=== PATIENT | female | born 1990 | race Caucasian/White ===

== ENCOUNTER → 2020-11-27 07:58 | Outpatient (BNVA) | payer MEDICAID, SELFPAY | PROVIDERS: PCP Registered Nurse; Visit Provider Specialist | DX: R20.0 Anesthesia of skin (principal); R20.2 Paresthesia of skin | CPT/HCPCS: 95910 ==

== ENCOUNTER → 2020-12-17 12:44 | Outpatient (BNVA) | payer MEDICAID, SELFPAY | PROVIDERS: PCP Registered Nurse; Referring Provider Registered Nurse; Visit Provider Anesthesiology Pain Medicine | DX: M54.5 Low back pain (principal); M79.641 Pain in right hand; M47.812 Spondylosis without myelopathy or radiculopathy, cervical region; Z79.891 Long term (current) use of opiate analgesic | CPT/HCPCS: 99214; 99215 ==

== ENCOUNTER → 2021-01-14 10:17 | Outpatient (BNVA) | payer MEDICAID, SELFPAY | PROVIDERS: PCP Registered Nurse; Visit Provider Anesthesiology Pain Medicine | DX: G89.29 Other chronic pain (principal); M54.5 Low back pain; R20.0 Anesthesia of skin; R20.2 Paresthesia of skin; M79.641 Pain in right hand; M79.642 Pain in left hand | CPT/HCPCS: 99213 ==

== ENCOUNTER → 2021-07-07 13:21 | Outpatient (BNVA) | payer MEDICAID, SELFPAY | PROVIDERS: PCP Registered Nurse; Visit Provider Internal Medicine Cardiovascular Disease | DX: I48.91 Unspecified atrial fibrillation (principal); F32.A Depression, unspecified; E66.9 Obesity, unspecified; F41.9 Anxiety disorder, unspecified; Z68.41 Body mass index [BMI] 40.0-44.9, adult | CPT/HCPCS: 99204 ==

== ENCOUNTER → 2021-07-14 13:44 | Outpatient (BNVA) | payer MEDICAID, SELFPAY | PROVIDERS: PCP Registered Nurse; Visit Provider Internal Medicine Cardiovascular Disease | DX: I48.91 Unspecified atrial fibrillation (principal) | CPT/HCPCS: 93005 ==

== ENCOUNTER → 2021-07-24 10:54 | Outpatient (BNVA) | payer MEDICAID, SELFPAY | PROVIDERS: PCP Registered Nurse; Referring Provider Family Medicine; Visit Provider Obstetrics & Gynecology | DX: Z12.4 Encounter for screening for malignant neoplasm of cervix (principal) | CPT/HCPCS: 87624 ==

== ENCOUNTER → 2021-07-30 08:30 | Outpatient (BNVA) | payer MEDICAID, SELFPAY | PROVIDERS: PCP Registered Nurse; Visit Provider Obstetrics & Gynecology | DX: N92.0 Excessive and frequent menstruation with regular cycle (principal); N93.9 Abnormal uterine and vaginal bleeding, unspecified | CPT/HCPCS: 87635 ==

== ENCOUNTER 2021-08-03 14:21 | Outpatient (CLI) | payer MEDICAID, SELFPAY ==
--- NOTE | 2021-08-03 14:32 | US_ITS ---
WS: [id number] TRANSABDOMINAL PELVIC AND TRANSVAGINAL PELVIC ULTRASOUND HISTORY: N92.0 - Excessive and frequent menstruation with irregular menses. COMPARISON: None available. Uterus: 9.1 cm x 7.0 cm x 5.0 cm. Enlarged anteverted uterus. Mild heterogeneity within the myometriu m. No discrete fibroid or mass identified. Small nabothian cysts. Endometrium: 1.0 cm. Mildly heterogeneous appearance of the endometrium. There are a few small cystic areas adjacent to the endometrium. Right ovary: 2.7 cm x 2.1 cm x 2.4 cm. Normal size and vascularity. Left ovary: 6.6 cm x 3.9 cm x 2.5 cm. There is a complex cystic structure in the cul-de-sac and exten ding into the LEFT adnexa. This may be the LEFT ovary. This also may be dilated fallopian tube due to with elongated appearance. There are a few small septations present. Limited vascularity may be due to position deep within the pelvis. No significant amount of free fluid in the cul-de-sac. US/US pelvic with transvaginal IMPRESSION: 1. Elongated cystic structure with septations deep within the pelvis and exten ding to the LEFT adnexa. This may be the LEFT ovary with cysts or LEFT fallopia n tube which is dilated. The entire structure measures 6.6 x 3.9 x 2.5 cm. A no rmal-appearing LEFT ovary is not identified. 2. Negative RIGHT ovary. 3. Mildly heterogeneous appearance of the endometrium with a few small, subcen timeter adjacent cystic structures. Possibility of adenomyosis must be consider ed.
== END 2021-08-03 14:22 | disposition home or self-care (01) ==
LOC: RAD 14:24
PROVIDERS: PCP Family Medicine; Visit Provider Obstetrics & Gynecology
DX: N92.0 Excessive and frequent menstruation with regular cycle (principal)
CPT/HCPCS: 76830; 76856

== ENCOUNTER 2021-08-04 07:26 | Day surgery (SDC) | payer MEDICAID, SELFPAY ==
[2021-08-03 10:27] VITALS: BMI 41.6
[2021-08-04] VITALS (10 sets, daily range): BP systolic 126–138; BP diastolic 70–96; PULSE 63–79; RESP 14–25; TEMP 36.5–36.6; O2SAT 98–100
--- NOTE | 2021-08-04 08:06 | P.ANESASSM_ITS ---
Pre-Anesthetic Assessment Height/Weight: Height 1.68 m Weight 117.027 kg Preop Diagnosis: AUB Operation Date: 08/04/21 09:30 Proposed Procedures p Hysteroscopy w/ Myosure/dialation and curettage [id number]/abla 32790/I48.91/N92.0(Not Applicable) - Damari Castillo MD s Dilation And Curettage (D&C)(Not Applicable) - Damari Castillo MD s Hysteroscopy w/ Ablation w/ Novasure(Not Applicable) - Damari Castillo MD Was Beta Alden taken within 24 hours: N/A Was Clonidine taken within 24 hours: N/A Social No alcohol and No tobacco Exam alert, oriented x 3, clear to auscultation bilaterally and regular rate & rhythm Airway Submandibular: within normal limits Cervical ROM: within normal limits Mallampati: Class III Dentition: chipped History/ROS No significant history except as noted Pulmonary Short of breath with one flight of stairs no CP CV/HEM Atrial Fibrillation and Anemia (Paroxysmal ) METS = 4 None reported Hepatic None reported GI None reported Metabolic Morbid Obesity Neuropsych Anxiety and Depression Anesthetic Plan ASA status: 3 (30 year old female with afib on anticoagulation, morbid obesity, anemia. ) Anesthesia: Anesthesia Evaluation and General Other: We discussed risk and benefits of general anesthesia including PONV, sore throat (sometimes severe), corneal abrasion, positioning and peripheral nerve injuries, life threatening allergic reaction, post operative ICU admission requiring prolonged intubation, stroke, heart attack, , and rare incidences of reca ll. Patient consents to proceed with general anesthesia. Risk of > 500 ml blood loss (7ml/kg in children): No Medications/Allergies Home Medications Medication Instructions Recorded Confirmed Last Taken Type buspirone 10 mg tablet 10 mg PO TID 11/27/20 08/04/21 07/05/21 History tizanidine 2 mg capsule 2 mg PO Q8H PRN 11/27/20 08/04/21 08/03/21 History venlafaxine 150 mg 150 mg PO DAILY 11/27/20 08/04/21 08/03/21 History capsule,extended release 24 hr gabapentin 300 mg capsule 300 mg PO TID #90 cap 01/14/21 08/04/21 08/03/21 Rx apixaban 5 mg tablet (Eliquis) 5 mg PO BID 07/07/21 08/03/21 08/02/21 History diltiazem HCl 360 mg 360 mg PO DAILY #30 cap 07/07/21 08/04/21 08/03/21 Rx capsule,extended release 24 hr (Cardizem CD) flecainide 100 mg tablet 100 mg PO Q12H #60 tab 07/07/21 08/04/21 08/03/21 Rx meloxicam 7.5 mg tablet 7.5 mg PO DAILY tab 07/07/21 08/04/21 07/21/21 History metoprolol succinate 100 mg 100 mg PO DAILY #30 tab 07/07/21 08/04/21 08/03/21 Rx tablet,extended release 24 hr norgestimate 0.25 mg-ethinyl 1 tab PO DAILY 07/24/21 08/04/21 08/03/21 History estradiol 35 mcg tablet Allergies Allergy/AdvReac Type Severity Reaction Status Date / Time No Known Allergies Allergy Verified 07/30/21 08:02 COUNT INCLUDES THE [facility] Anesthesia Medical History Anemia Anxiety Atrial fibrillation delivery delivered Depression Obesity Family History Mother Hypertension Family/Other Diabetes Paternal uncle Denies family history of CAD (coronary artery disease) Clotting disorder Hyperlipidemia Chronic kidney disease (CKD) Bleeding disorder Cancer Thyroid disease Stroke Social History Smoking and tobacco status: never smoked Alcohol intake: never Caregiver/support person: Yes Lives independently: Yes History of recent travel: No Female Reproductive History Date of last menstrual period: 06/30/21 Data Anesthesia : 08/04/21 Unknown Cardiac Studies: No Data to Display
[2021-08-04] MEDS: sodium chloride 0.9% 1,000 ML 30 ML IV (08:10)
[2021-08-04] MEDS: acetaminophen 1,000 MG/100 ML PIGGYBACK 400 MG IV (08:10)
[2021-08-04] MEDS: ketorolac 30 mg/mL INJ IVP (08:19)
[2021-08-04 08:28] LABS: OR HCG Qualitative Urine Negative (Negative)
[2021-08-04 08:29] LABS: Basophils % 0.5 %; Eosinophils # 0.1 10^3/uL (0.0-0.8); Eosinophils % 1.6 %; Hematocrit 32.1 % (37.0-47.0); Hemoglobin 9.3 g/dL (11.5-15.3); Lymphocytes % 18.3 %; Mean Corpuscular Hemoglobin 20.9 pg (28.0-34.0); Mean Corpuscular Volume 72.3 fl (81-99); Mean Platelet Volume 11.1 fL (7.4-10.4); Monocytes # 0.4 10^3/uL (0.2-0.9); Monocytes % 6.5 %; Neutrophils # 4.02 10^3/uL (1.8-7.7); Neutrophils % 72.9 %; Nucleated Red Blood Cells % 0 %; Platelet Count 193 10^3/cmm (130-400); Red Blood Count 4.44 10^6/uL (4.1-5.3); Red Cell Distribution Width 16.3 % (12.1-15.1); White Blood Count 5.5 10^3/uL (4.0-10.0)
--- NOTE | 2021-08-04 09:15 | W.PM.OPSUD ---
Surgery/Procedure H&P Update DATE OF PROCEDURE: August 04, 2021 DATE H&P PERFORMED: 07/30/21 H&P UPDATE INFORMATION: I have reviewed H&P completed within last 30 days, I have examined patient prior to procedure and No changes to prior documentation PREOP DIAGNOSIS: AUB PLANNED PROCEDURE: Operation Date: 08/04/21 09:30 Proposed Procedures p Hysteroscopy w/ Myosure/dialation and curettage [id number]/abla 06715/I48.91/N92.0(Not Applicable) - Damari Castillo MD s Dilation And Curettage (D&C)(Not Applicable) - Damari Castillo MD s Hysteroscopy w/ Ablation w/ Novasure(Not Applicable) - Damari Castillo MD Related Problem List Diagnoses (1) Abnormal uterine bleeding (AUB): (2) Obesity:
--- NOTE | 2021-08-04 11:09 | P.OP_ITS ---
Operative Report Date of procedure: August 04, 2021 Pre-op diagnosis: Preop Diagnosis AUB Post-op diagnosis: same Post-op findings: 10 week sized uterus with excessive tissue and a suspicious nodule near the left tubal ostia Procedure done: hysteroscopy, dilation and curettage with myosure and failed novasure ablation. Specimens removed/disposition: endometrial curettings to pathology Surgeon: Damari Castillo Anesthesia: General Estimated blood loss (mL): 50 IV fluids (mL): 700 Urine output (mL): 150 Complications: none Findings: 10 week sized uterus with excessive tissue and endometrial vascular nodule hysteroscopy deficit 400 Procedure: The patient was taken to the operating room where monitored anesthesia was administered and to be adequate. She was prepped and draped in the normal sterile fashion in the dorsal lithotomy position in Domenico stirrups. A weighted speculum was placed into the vagina and the anterior lip of the cervix grasped with a single-tooth tenaculum. The uterus was sounded to 10 cm. The cervix was dilated to 16 Mongolian. The hysteroscope was advanced into the endometrial cavity. There was excessive tissue and a vascular nodule near the left tubal ostia visualized. The MyoSure device was activated and the tissue was removed. Pictures were taken pre and post procedure. Attention was then turned to the NovaSure portion of the procedure. The NovaSure device was advanced into the endometrial cavity. The endometrial length was 6 and the endometrial width was 4.9. The first novasure device would not pass the cavity test. It was replaced and the device passed the test and was ready to use. The NovaSure device was activated and burn time was 4 seconds before it alarmed with damaged device. The device was removed and it was covered in tissue. The decision was made not to continue as there was so much tissue that it would likely continue to have the same problem. The mysosure was used again and there was some kira on the tissue. Everything else appeared normal. All instruments were removed. The patient tolerated the procedure well. Sponge lap and needle counts were correct x3. She was taken to the recovery room in stable condition.
--- NOTE | 2021-08-04 11:19 | PM.DCS ---
Discharge Providers Date of Discharge: August 04, 2021 Attending Provider at Discharge: Damari Castillo MD Primary Care Provider: Jovana Bailey DO Diagnoses at Discharge Discharge Diagnosis (1) Abnormal uterine bleeding (AUB): Status: Acute (2) Obesity: Status: Acute Reason for Visit Reason for Visit: menorrhagia N92.0/Attial Fibrillation I48.91 Hospital Course Hospital Course The patient was admitted for surgery. She did well postoperatively and was ready for discharge. Physical Exam Urinary Catheter Management: Benjamin: Cath Placed During This Visit: yes, but has since been removed by the nurse Urinary Catheter Date of Insertion: 08/04/21 Urinary Catheter Time of Insertion: 10:11 Date Urinary Catheter Removed: 08/04/21 Time Urinary Catheter Discontinued: 10:55 Discharge Data Studies Completed and Pending Pending at discharge Category Date Time Status ES surgery / GI images Routine Exams 08/04/21 08:01 Taken Pathology: Surgical [PTH] Routine Pth 08/04/21 11:01 Ordered Laboratory Results WBC 5.5 10^3/uL (4.0-10.0) 08/04/21 Unknown RBC 4.44 10^6/uL (4.1-5.3) 08/04/21 Unknown Hgb 9.3 g/dL (11.5-15.3) L 08/04/21 Unknown Hct 32.1 % (37.0-47.0) L 08/04/21 Unknown MCV 72.3 fl (81-99) L 08/04/21 Unknown MCH 20.9 pg (28.0-34.0) L 08/04/21 Unknown MCHC 29.0 g/dL (30.0-36.0) L 08/04/21 Unknown RDW 16.3 % (12.1-15.1) H 08/04/21 Unknown Plt Count 193 10^3/cmm (130-400) 08/04/21 Unknown MPV 11.1 fL (7.4-10.4) H 08/04/21 Unknown Neut % (Auto) 72.9 % 08/04/21 Unknown Lymph % (Auto) 18.3 % 08/04/21 Unknown Stokes % (Auto) 6.5 % 08/04/21 Unknown Eos % (Auto) 1.6 % 08/04/21 Unknown Baso % (Auto) 0.5 % 08/04/21 Unknown Neut # (Auto) 4.02 10^3/uL (1.8-7.7) 08/04/21 Unknown Lymph # (Auto) 1.0 10^3/uL (0.8-4.8) 08/04/21 Unknown Stokes # (Auto) 0.4 10^3/uL (0.2-0.9) 08/04/21 Unknown Eos # (Auto) 0.1 10^3/uL (0.0-0.8) 08/04/21 Unknown Baso # (Auto) 0.0 10^3/uL (0.0-0.1) 08/04/21 Unknown Nucleated RBC % (auto) 0 % 08/04/21 Unknown Nucleated RBCs # 0.0 /100WBC 08/04/21 Unknown Urine HCG, Qual Negative (Negative) 08/04/21 08:27 Vitals Last Vital Signs Temp 98 F 08/04/21 08:12 Pulse 65 08/04/21 08:12 Resp 16 08/04/21 08:12 BP 138/83 08/04/21 08:12 Pulse Ox 98 08/04/21 08:12 Discharge Plan Discharge Patient Disposition: Home Condition: Stable Prescriptions: Continued venlafaxine 150 mg capsule,extended release 24hr 150 mg PO DAILY 0RF buspirone 10 mg tablet 10 mg PO TID 0RF tizanidine 2 mg capsule 2 mg PO Q8H PRN (Reason: Spasms) 0RF gabapentin 300 mg capsule 300 mg PO TID Qty: 90 3RF norgestimate-ethinyl estradiol 0.25-35 mg-mcg tablet 1 tab PO DAILY 0RF meloxicam 7.5 mg tablet 7.5 mg PO DAILY 0RF Eliquis 5 mg tablet 5 mg PO BID 0RF flecainide 100 mg tablet 100 mg PO Q12H Qty: 60 2RF metoprolol succinate 100 mg tablet extended release 24 hr 100 mg PO DAILY Qty: 30 3RF diltiazem HCl [Cardizem CD] 360 mg capsule,extended release 24hr 360 mg PO DAILY Qty: 30 2RF Discharge Orders: Discharge Order (Routine); Ordered 08/04/21 Ordered By: Damari Castillo Discharge Attestations Time Spent in Discharge Care*: less than 30 min Quality Metrics Clinical Quality Measures [ No reported AMI, CVA or VTE this stay] Coding Level of Care Code Acute Chg FW DC note Diagnoses Abnormal uterine bleeding (AUB) N93.9 Obesity E66.9
--- NOTE | 2021-08-04 11:25 | SUR.PHASEI ---
1118 PT TO PACU 5 PT SLEEPY WITH GOOD RESP EFFORT NOTED, NO DISTRESS, VSS IV PATENT TO LT WRIST #18 WITH NS 1000ML UP AT KVO RATE. ELIZABETH PAD IN PLACE WITH MOD AMT LT RED DRAINAGE, BILATERAL SCDS ON PT. ABDOMEN SOFT
--- NOTE | 2021-08-04 12:50 | ANE.PACU2 ---
Inpatient post-anesthesia follow up: Airway intact: Yes Vital signs: Temperature 97.7 F Pulse Rate 69 Respiratory Rate 16 Blood Pressure 129/79 Pulse Oximetry 100 Oxygen Delivery Me thod Room Air Oxygen Flow Rate 6 Fraction of Inspir ed Oxygen Hydration adequate: Yes Nausea and vomiting: No Pain level: 1 Mental status: Baseline
== END 2021-08-04 12:30 | disposition home or self-care (01) ==
PROVIDERS: Anesthesiology; PCP Family Medicine; Visit Provider Obstetrics & Gynecology
PROC: 0UDB8ZZ Extraction of Endometrium, Via Natural or Artificial Opening Endoscopic (ICD-10-PCS; CPT 58558; principal; 2021-08-04 09:20)
PROC: (CPT 58120; 2021-08-04 09:20)
PROC: 0U598ZZ Destruction of Uterus, Via Natural or Artificial Opening Endoscopic (ICD-10-PCS; CPT 58563; 2021-08-04 09:20)
DX: N93.9 Abnormal uterine and vaginal bleeding, unspecified (principal); E66.01 Morbid (severe) obesity due to excess calories; Z68.41 Body mass index [BMI] 40.0-44.9, adult; I48.91 Unspecified atrial fibrillation; I48.0 Paroxysmal atrial fibrillation; F41.9 Anxiety disorder, unspecified; F32.9 Major depressive disorder, single episode, unspecified; Z82.49 Family history of ischemic heart disease and other diseases of the circulatory system
CPT/HCPCS: 58558; 36415; 81025; 84703; 85025; 88305; J0330; J1100; J1200; J1885; J2250; J2405; J2704; J3010; J3490; J7030